=== PATIENT | female | born 1945 | race American Indian/Alaskan Native ===

== ENCOUNTER 2016-06-21 09:39 | Outpatient (CLI) | payer MEDICARE, OTHER ==
--- NOTE | 2016-06-21 10:34 | Mammography Report ---
RIGHT DIGITAL DIAGNOSTIC MAMMOGRAM WITH CAD: 06/21/16 09:39:00 CLINICAL: Breast cancer survivor status post left mastectomy. COMPARISON:03/24/15 FINDINGS: The breast is heterogeneously dense, which may obscure small masses. Benign calcifications.No mass, suspicious architectural distortion or suspicious calcifications. IMPRESSION: No mammographic evidence of malignancy. BI-RADS CATEGORY: 2 -- Benign RECOMMENDATION: Routine mammographic screening in one year. ACR BI-RADS MAMMOGRAPHIC CODES: 0 = Needs additional imaging evaluation; 1 = Negative; 2 = Benign; 3 = Probably benign; 4 = Suspicious; 5 = Malignant; 6 = Known biopsy-proven malignancy COMMENT: 1. Dense breast tissue, i.e., adenosis, fibrocystic changes, etc., may obscure an underlying neoplasm. 2. Approximately 10% of cancers are not detected with mammography. 3. A negative mammography report should not delay biopsy if a clinically suspicious mass is present. COMMENT: Patient follow-up letters are generated via our [employer]igator application.
== END 2016-06-21 09:40 | disposition home or self-care (01) ==
LOC: SPVWC 09:39
PROVIDERS: ATTEND Internal Medicine Hematology & Oncology
DX: C50.212 Malignant neoplasm of upper-inner quadrant of left female breast (principal); Z90.12 Acquired absence of left breast and nipple
CPT/HCPCS: G0206-RT

== ENCOUNTER 2016-11-03 08:20 | Day surgery (SDC) | payer MEDICARE, OTHER ==
[~2016-11-03 08:20] MED LIST: ANCEF/STERILE WATER 2 GM/20 ML 2 GM/20 ML SYRINGE IV NR; NACL 0.9% 1000 ML 1,000 ML IV SCH
[2016-11-03] MEDS ORDERED: NACL 0.9% 500 ML 500 ML IV SCH (08:32)
[2016-11-03 10:11] LABS: Basophils % (Auto) 0.8 % (0.0-1.8); Eosinophils % (Auto) 2.2 % (0.0-4.3); Hematocrit 33.1 % (30.3-42.9); Mean Corpuscular HGB Conc 33 % (30-34); Mean Corpuscular Hemoglobin 28 pg (28-32); Mean Corpuscular Volume 85 fl (79-97); Platelet Count 324 K/mm3 (140-440); Red Blood Count 3.89 M/mm3 (3.65-5.03); Red Cell Distribution Width 14.7 % (13.2-15.2); White Blood Count 4.8 K/mm3 (4.5-11.0)
[2016-11-03 10:23] LABS: Anion Gap 17 mmol/L; BUN/Creatinine Ratio 24.28; Blood Urea Nitrogen 17 mg/dL (7-17); Calcium 9.4 mg/dL (8.4-10.2); Carbon Dioxide 26 mmol/L (22-30); Chloride 101.1 mmol/L (98-107); Glucose 164 mg/dL (65-100); INR 0.89 (0.87-1.13); Partial Thromboplastin Time 27.8 Sec. (24.2-36.6); Potassium 3.6 mmol/L (3.6-5.0); Sodium 140 mmol/L (137-145)
[2016-11-03] MEDS ORDERED: VANCOMYCIN/NS 1 GM/250 ML 1 GM/250 ML BAG IV ONE (13:02)
[2016-11-03] MEDS ORDERED: XYLOCAINE 2% INFILTRATI ONE (13:02)
[2016-11-03] MEDS ORDERED: NACL 0.9% 500 ML 1,000 ML ONE (13:02)
[2016-11-03] MEDS: SUBLIMAZE ONE ×2 (13:17→13:19)
[2016-11-03] MEDS: VERSED ONE ×2 (13:17→13:19)
--- NOTE | 2016-11-03 13:42 | Short Stay Summary ---
Short Stay Documentation Date of service: 11/03/16 - History Past Medical History: cancer Past Surgical History: Other (port placement) Social history: no significant social history - Allergies and Medications Current Medications: Allergies Penicillins Adverse Reaction (Verified 11/03/16 10:58) Hives Home Medications Medication Instructions Recorded Confirmed Last Taken Type Carvedilol [Carvedilol] 1.125 mg PO BID 11/03/16 11/03/16 11/02/16 History Exenatide Microspheres [Bydureon 2 mg SQ QWEEK 11/03/16 11/03/16 Unknown History Pen] Ferrous Sulfate [Ferosul] 325 mg PO DAILY 11/03/16 11/03/16 11/02/16 History Insulin Glargine,Hum.rec.anlog 60 units SQ QHS 11/03/16 11/03/16 11/01/16 History [Lantus Solostar] Insulin Lispro [Humalog 100 20 units SQ AC 11/03/16 11/03/16 11/02/16 History UNITS/ML Kwikpen] Omeprazole [Omeprazole] 40 mg PO DAILY 11/03/16 11/03/16 11/02/16 History Pravastatin Sodium [Pravastatin] 10 mg PO DAILY 11/03/16 11/03/16 11/03/16 History Telmisartan/Hydrochlorothiazid 1 each PO DAILY 11/03/16 11/03/16 11/03/16 History [Telmisartan-Hctz 80-12.5 mg Tb] metFORMIN [Glucophage] 500 mg PO BID 11/03/16 11/03/16 11/02/16 History Active Medications Cefazolin Sodium (Ancef/Sterile Water 2 Gm/20 Ml) 2 gm in 20 mls @ 80 mls/hr IV PREOP NR PRN Reason: Protocol Stop: 11/03/16 23:00 Sodium Chloride (Nacl 0.9% 500 Ml) 500 mls @ 50 mls/hr IV DIRECT LAURA - Physical exam General appearance: no acute distress Integumentary: other (2 surgical scars at port insertion site) HEENT: Atraumatic Lungs: Normal air movement Breasts: deferred (post surgical) Heart: Regular rate Gastrointestinal: normal Female Genitourinary: deferred Rectal Exam: deferred Neurological: Normal speech, Normal tone - Brief post op/procedure progress note Date of procedure: 11/03/16 Pre-op diagnosis: Port no longer needed Post-op diagnosis: same Procedure: Right chest wall port removal Anesthesia: local Surgeon: PALOMO LUZ Estimated blood loss: minimal Pathology: none Condition: stable - Disposition Condition at discharge: Good Disposition: DC-01 TO HOME OR SELFCARE Short Stay Discharge Plan Activity: advance as tolerated Weight Bearing Status: Weight Bear as Tolerated Diet: regular Wound: keep clean and dry, per your surgeon's advice Follow up with: ROXANA SMITH MD [Staff Physician] - 7 Days
--- NOTE | 2016-11-03 13:47 | Operative Report ---
Operative Report Operative Report: EXAM: RIGHT CHEST WALL PORT REMOVAL CLINICAL INDICATION: PATIENT WITH A HISTORY OF BREAST CANCER, PORT NO LONGER NEEDED DATE: 11/03/2016 PROCEDURE: Following an explanation of the risks, benefits and alternatives; written informed consent was obtained. The patient was brought graphic suite and placed in supine position on the examination table. Her right chest wall was prepped and draped in the usual sterile fashion. 2% lidocaine was liberally used for anesthesia. Initial fluoroscopic images demonstrated appropriate positioning of the previously placed port. The port pocket was entered using a combination of sharp and blunt dissection. The proximal port catheter tubing was then dissected free and hemostats placed across the catheter tubing. The port was then disconnected from the catheter tubing and removed intact. The catheter tubing was then dissected using blunt dissection to free up approximately 3 cm of the catheter tubing. A 0.035 Barahona guidewire was advanced through the port tubing into the proximal right atrium. The guidewire and port catheter tubing were then clamped. Together the guidewire and catheter tubing were retracted proximally and the soft tissue dissected free from the port catheter tubing incrementally. Ultimately, the catheter tubing was removed intact over the guidewire. Post procedure fluoroscopy demonstrated no retained fragments. The port incision was closed using subcuticular and subcutaneous 3-0 and 4-0 Vicryl suture. Dermabond was then applied. The patient tolerated the procedure well. There were no immediate post procedure complications. Conscious sedation was performed under the guidance radiologic nursing. Continuous cardiopulmonary monitoring was utilized. IMPRESSION: 1) Right chest wall port removal as described.
[2016-11-03 14:54] VITALS: BP 142/69
== END 2016-11-03 08:21 | disposition home or self-care (01) ==
LOC: CATHLABREC 08:20
PROVIDERS: ATTEND Radiology Diagnostic Radiology
DX: Z45.2 Encounter for adjustment and management of vascular access device (principal); E11.9 Type 2 diabetes mellitus without complications; Z85.3 Personal history of malignant neoplasm of breast; Z88.0 Allergy status to penicillin; Z90.12 Acquired absence of left breast and nipple; Z90.710 Acquired absence of both cervix and uterus; Z98.890 Other specified postprocedural states; Z80.41 Family history of malignant neoplasm of ovary; Z80.0 Family history of malignant neoplasm of digestive organs; Z79.4 Long term (current) use of insulin
CPT/HCPCS: 36415; 36590; 80048; 85025; 85610; 85730; C1769; J2250; J3010; J3370; J7040

== ENCOUNTER 2017-05-21 09:49 | Outpatient (CLI) | payer MEDICARE, OTHER ==
--- NOTE | 2017-05-22 08:02 | Mammography Report ---
BONE DEXA:05/21/17 09:49:00 CLINICAL: Postmenopausal. No comparison. TECHNIQUE: Two site bone DEXA performed on an Hologic scanner. FINDINGS: The average BMD of the lumbar spine L1-L4 is 0.943g/cm squared with a T-score of -1.9 and a Z-score of +0.4. The average BMD of the left hip is 0.976g/cm squared with a T-score of -0.4 and a Z-score of +0.8. The left femoral neck BMD is 0.774g/cm squared with a T score of -1.2 and Z score of +0.2. IMPRESSION: WHO classification: Osteopenia with increased fracture risk based on spine and left femoral neck measurements. RECOMMENDATION: Clinical correlation and routine screening. DEFINITIONS: BMD = Bone Mineral Density T-score = BMD related to mean peak bone mass of young adult (mean expressed in Standard Deviation) Z-score = Age matched BMD expressed in SD World Health Organization (WHO) Diagnostic Criteria Normal T-score > -1 SD Osteopenia T-score between -1 and -2.4 SD Osteoporosis T-score -2.5 SD or below NOTE: BMD is not the only risk factor for fracture. One should also consider factors such as the patient's age, risk of falling, previous osteoporotic fracture, family history of osteoporotic fractures, current smoker, and low body weight. Z-scores are not calculated if >80 years of age.
== END 2017-05-21 09:50 | disposition home or self-care (01) ==
LOC: SPVWC 09:49
PROVIDERS: ATTEND Internal Medicine
DX: M85.88 Other specified disorders of bone density and structure, other site (principal); M81.0 Age-related osteoporosis without current pathological fracture; Z78.0 Asymptomatic menopausal state
CPT/HCPCS: 77080

== ENCOUNTER 2017-07-09 10:18 | Outpatient (CLI) | payer MEDICARE, OTHER ==
--- NOTE | 2017-07-09 11:01 | Mammography Report ---
RIGHT DIGITAL SCREENING MAMMOGRAM with CAD: 07/09/17 10:18:00 CLINICAL: Routine screening. Breast cancer survivor status post left mastectomy. COMPARISON:06/21/16 FINDINGS: The breast is heterogeneously dense, which may tear small masses. Scattered calcifications with benign morphology are stable.No mass, architectural distortion or suspicious calcifications. IMPRESSION: No mammographic evidence of malignancy. BI-RADS CATEGORY: 2 -- Benign RECOMMENDATION: Routine screening in one year. ACR BI-RADS MAMMOGRAPHIC CODES: 0 = Needs additional imaging evaluation; 1 = Negative; 2 = Benign; 3 = Probably benign; 4 = Suspicious; 5 = Malignant; 6 = Known biopsy-proven malignancy COMMENT: 1. Dense breast tissue, i.e., adenosis, fibrocystic changes, etc., may obscure an underlying neoplasm. 2. Approximately 10% of cancers are not detected with mammography. 3. A negative mammography report should not delay biopsy if a clinically suspicious mass is present. COMMENT: Patient follow-up letters are generated via our [employer] application.
== END 2017-07-09 10:19 | disposition home or self-care (01) ==
LOC: SPVWC 10:18
PROVIDERS: ATTEND Surgery
DX: Z12.31 Encounter for screening mammogram for malignant neoplasm of breast (principal); R92.1 Mammographic calcification found on diagnostic imaging of breast

== ENCOUNTER 2020-08-09 09:48 | Outpatient (CLI) | payer MEDICARE, OTHER ==
--- NOTE | 2020-08-09 15:10 | Mammography Report ---
DIGITAL SCREENING MAMMOGRAM WITH CAD, 08/09/2020 INDICATION: Routine screening mammography. TECHNIQUE: Digital right 2D mammography was obtained in the craniocaudal and mediolateral oblique pr ojections. This examination was interpreted with the benefit of Computer-Aided Detection analysis. COMPARISON: 08/07/2019 FINDINGS: Breast Density: The breasts are heterogeneously dense, which may obscure small masses. Left breast is surgically absent. Neither calcifications 3:00 right breast posterior depth. Magnifica tion views are recommended. IMPRESSION: Follow up recommendation: Special View: Mag BI-RADS Category 0: Incomplete. Needs additional imaging evaluation and/or prior mammograms for reginald rison. A "normal" or negative report should not discourage follow up or biopsy of a clinically significant f inding. A written summary of these findings will be mailed to the patient. The patient will be entered into a mammography reporting system which will generate a reminder letter for the patient's next appointmen t at the appropriate interval. The [employer] recommends yearly mammograms starting at age 40 and continuing as l thien as a woman is in good health. Breast MRI is recommended for women with an approximate 20-25% or greater lifetime risk of breast cancer, including women with a strong family history of breast or ova lacy cancer or who have been treated for Hodgkin's disease. Signer Name: Patrick Bradley MD Signed: 08/09/2020 3:06 PM Workstation Name: [id number]
== END 2020-08-09 09:49 | disposition home or self-care (01) ==
LOC: SPVWC 09:48
PROVIDERS: ATTEND Surgery
DX: Z12.31 Encounter for screening mammogram for malignant neoplasm of breast (principal); Z90.12 Acquired absence of left breast and nipple

== ENCOUNTER 2020-10-11 11:18 | Outpatient (CLI) | payer MEDICARE, OTHER ==
--- NOTE | 2020-10-11 14:16 | Cat Scan Report ---
CT CHEST, ABDOMEN, AND PELVIS WITH CONTRAST INDICATION / CLINICAL INFORMATION: Breast cancer. Elevated tumor marker. TECHNIQUE: Axial CT images were obtained through the chest, abdomen, and pelvis after Omnipaque 300, 60 cc IV contrast. All CT scans at this location are performed using CT dose reduction for VISHNU batista of automated exposure control. COMPARISON: None available. FINDINGS: HEART/VASCULAR STRUCTUES: Replaced right subclavian artery which is densely calcified proximally. Kermit cification mitral annulus. Coronary artery calcification. MEDIASTINUM / KELLY: No significant abnormality. PLEURA: No pleural effusion. No pneumothorax. LUNGS: Lingular scarring. Mild air trapping at the lung bases. ADDITIONAL CHEST FINDINGS: Previous reconstruction left breast. LIVER: Indeterminate 1 cm low density lesion posterior segment right hepatic lobe (series 3, image 33 ) GALLBLADDER: No significant abnormality. BILE DUCTS: No significant abnormality. PANCREAS: No significant abnormality. SPLEEN: No significant abnormality. ADRENALS: No significant abnormality. RIGHT KIDNEY / URETER: Scarring greatest inferiorly. LEFT KIDNEY / URETER: Indeterminate solid appearing lesion lateral left kidney measuring 2.7 x 2.8 cm (series 3, image 75). STOMACH and SMALL BOWEL: Small hiatal hernia. COLON: No significant abnormality. APPENDIX: No significant abnormality. PERITONEUM: No free fluid. No free air. No fluid collection. LYMPH NODES: No significant adenopathy. VASCULAR STRUCTURES: No significant abnormality. URINARY BLADDER: No significant abnormality. REPRODUCTIVE ORGANS: Previous hysterectomy. ADDITIONAL FINDINGS: Fat-containing inguinal hernias left greater than right. SKELETAL SYSTEM: No significant abnormality. IMPRESSION: 1. Indeterminate hepatic lesion. 2. Left renal lesion worrisome for malignancy. This finding could be better evaluated with multiphase CT or ultrasound. Signer Name: Patrick Bradley MD Signed: 10/11/2020 2:11 PM Workstation Name: [id number]
== END 2020-10-11 11:19 | disposition home or self-care (01) ==
LOC: CT 11:18
PROVIDERS: ATTEND Internal Medicine Hematology & Oncology
DX: C50.212 Malignant neoplasm of upper-inner quadrant of left female breast (principal); K76.9 Liver disease, unspecified; D50.8 Other iron deficiency anemias; D50.9 Iron deficiency anemia, unspecified
CPT/HCPCS: 36415; 71260; 74177; 82565; 84520; Q9967

== ENCOUNTER 2020-11-02 13:32 | Outpatient (CLI) | payer MEDICARE, OTHER ==
--- NOTE | 2020-11-02 16:10 | Magnetic Resonance Report ---
MR abdomen wo/w con INDICATION: ENCOUNTER FOR ANTINEOPLASTIC CHEMOTHERAPY, ABD PAIN RT SIDE. TECHNIQUE: Multiplanar, multisequence MR images were obtained through the abdomen before and after administratio n of 20 cc MultiHance IV contrast. COMPARISON: CT abdomen and pelvis with contrast from July 11, 2020. FINDINGS: LOWER CHEST: No significant abnormality. LIVER: A nonenhancing hypointense lesion is seen posteriorly along the right hepatic lobe on image 38 of series 901 without corresponding hyperintensity on fluid sensitive sequences. No other significan t abnormality. GALLBLADDER: No significant abnormality. BILE DUCTS: No significant abnormality. PANCREAS: No significant abnormality. SPLEEN: No significant abnormality. ADRENALS: No significant abnormality. RIGHT KIDNEY / URETER: Lower pole scarring is again noted without other significant abnormalities. LEFT KIDNEY / URETER: An enhancing mid pole mass measures 2.9 x 2.8 cm on image 71 of series 902. No other significant abnormality. STOMACH / SMALL BOWEL: No significant abnormality. COLON: No significant abnormality. APPENDIX: Not seen. PERITONEUM: No free fluid. No fluid collection. LYMPH NODES: No significant adenopathy. AORTA / ARTERIES: No significant abnormality. IVC / VEINS: No significant abnormality. ADDITIONAL FINDINGS: None. SKELETAL SYSTEM: No significant abnormality. IMPRESSION: 1. Enhancing left renal mass is most concerning for renal cell carcinoma until proven otherwise. 2. No MRI evidence of metastatic disease in the abdomen. 3. Likely benign nonenhancing right hepatic lobe lesion as above. Signer Name: Rodrick Ortiz MD Signed: 11/02/2020 4:05 PM Workstation Name: [id number]-[email or web address]
== END 2020-11-02 13:33 | disposition home or self-care (01) ==
LOC: MRI 13:32
PROVIDERS: ATTEND Internal Medicine Hematology & Oncology
DX: N28.9 Disorder of kidney and ureter, unspecified (principal); K76.9 Liver disease, unspecified; Z51.11 Encounter for antineoplastic chemotherapy; D50.9 Iron deficiency anemia, unspecified; C50.212 Malignant neoplasm of upper-inner quadrant of left female breast; Z23 Encounter for immunization; M85.80 Other specified disorders of bone density and structure, unspecified site; I10 Essential (primary) hypertension; R68.89 Other general symptoms and signs; D50.8 Other iron deficiency anemias; K90.49 Malabsorption due to intolerance, not elsewhere classified
CPT/HCPCS: 74183; A9575

== ENCOUNTER 2021-04-28 11:22 | Outpatient (CLI) | payer MEDICARE, OTHER ==
--- NOTE | 2021-04-28 14:37 | PET Report ---
PET/CT HISTORY: C50.212. Restaging of left breast cancer TECHNIQUE: The patient's fasting blood glucose was 114. The patient weighed 186 lbs. The patient w as injected with 13.6 mCi of FDG in the right hand at 1231 hours and imaging was started at 1314 hour s. The patient was imaged from the skull base to the thighs. All CT scans at this location are perfo rmed using CT dose reduction for ALARA by means of automated exposure control. Images were reviewed o n a workstation. COMPARISON: No previous PET/CT. Correlation is made with CT chest abdomen pelvis 10/11/2020 and MR ab medel 11/02/2020 FINDINGS: IMAGED BRAIN: Physiologic FDG uptake. NECK: There are a few new mildly enlarged and hypermetabolic lymph nodes in the left neck. The larges t lymph node measures 2 cm with max SUV measuring 8.0. CHEST WALL: Surgical changes are again noted in the left breast. There is a new soft tissue density masslike lesion in the left subpectoral region measuring 3.0 x 2.3 cm with max SUV measuring 7.0. It is unclear if this represents an enlarged lymph node or chest wall recurrence. MEDIASTINUM: There are multiple new mildly enlarged mediastinal lymph nodes in the paratracheal errol n, subcarinal chain and bilateral hilar chains. All demonstrate mild increased metabolic activity. A right hilar lymph node demonstrates a max SUV of 5.2.. LUNGS: Multiple new lung lesions are identified. There is a 1.4 cm pleural-based lesion at the right lung apex. There is a 2.2 cm pleural-based lesion in the medial right lower lobe. There is a 2.5 cm pleural-based mass in the lateral left upper lobe. There is an 8 mm nodule in the posterior left lowe r lobe. The largest lesion in the left upper lobe demonstrates a max SUV of 9.8. HEPATOBILIARY: Physiologic FDG uptake. Previously described subcentimeter hypodense lesion in the ri ght hepatic lobe is not hypermetabolic. PANCREAS: Physiologic FDG uptake. SPLEEN: Physiologic FDG uptake. KIDNEYS/BLADDER: Previously described 2.5 cm complex cyst or possibly mass in the mid left kidney ap pears to be slightly hypermetabolic with max SUV measuring 5.5. ADRENAL GLANDS: Physiologic FDG uptake. GI/MESENTERY: Physiologic FDG uptake. PELVIC VISCERA: Physiologic FDG uptake. LYMPH NODES: There is physiologic FDG uptake in the abdominal and pelvic lymph nodes. OSSEOUS STRUCTURES: Physiologic FDG uptake. ADDITIONAL FINDINGS: There is mild muscular uptake in the chest and gluteal and right quadriceps mus katty without discrete mass on CT. IMPRESSION: Progression of disease is demonstrated since 10/11/2020 CT examinations. There appear to be new hyper metabolic lymph nodes throughout the mediastinum and left neck. There is a new soft tissue mass or ad enopathy in the left subpectoral radial region. At least 4 new pulmonary lesions are identified consi stent with metastatic disease. No hypermetabolic liver lesion is identified. The previously described 2.5 cm left renal mass is mildly hypermetabolic as outlined above and remains concerning for neoplas m. Signer Name: Dawit Singh Jr, MD Signed: 04/28/2021 2:33 PM Workstation Name: [id number]
== END 2021-04-28 11:23 | disposition home or self-care (01) ==
LOC: PET 11:22
PROVIDERS: ATTEND Internal Medicine Hematology & Oncology
DX: C50.212 Malignant neoplasm of upper-inner quadrant of left female breast (principal); D50.9 Iron deficiency anemia, unspecified; D50.8 Other iron deficiency anemias; R59.0 Localized enlarged lymph nodes; N28.89 Other specified disorders of kidney and ureter
CPT/HCPCS: 78815; 82962; A9552